=== PATIENT | male | born 1975 | race Caucasian/White ===

== ENCOUNTER 2021-12-08 14:44 | Inpatient (IN) | payer MEDICAID ==
[~2021-12-08] VITALS: Ht 195.6 cm; Wt 104.5 kg
[2021-12-08] MEDS ORDERED: normal saline 1000ML IV soln IV ONE (15:00)
[2021-12-08] MEDS ORDERED: piperacillin/tazo 3.375gm/50ml 50 ML IV ONE (15:00)
[2021-12-08] MEDS ORDERED: vancomycin/NS 1 GM ADD-VANTAGE 250 ML IV ONE (15:00)
[2021-12-08 15:32] LABS: BASOPHILS % (AUTO) 0.3 % (0-1); EOSINOPHILS # (AUTO) 0.2 X10'3 (0-0.9); HEMATOCRIT 40.3 % (42.0-52.0); HEMOGLOBIN 13.9 g/dl (14.0-17.9); LYMPHOCYTES # (AUTO) 1.5 X10'3 (1.1-4.8); LYMPHOCYTES % (AUTO) 9.4 % (21-51); MEAN CORPUSCULAR HEMOGLOBIN 30.7 PG (27.0-31.0); MEAN CORPUSCULAR HGB CONC 34.5 g/dL (33.0-36.5); MEAN PLATELET VOLUME 8.3 FL (7.4-10.4); MONOCYTES # (AUTO) 1.4 X10'3 (0-0.9); MONOCYTES % (AUTO) 8.5 % (2-12); NEUTROPHILS # (AUTO) 12.9 X10'3 (1.8-7.7); NEUTROPHILS % (AUTO) 80.8 % (42-75); PLATELET COUNT 290 X10'3 (140-440); RED BLOOD COUNT 4.53 X10'6 (4.70-6.10); RED CELL DISTRIBUTION WIDTH 13.1 % (11.5-14.5)
[2021-12-08 15:40] LABS: ALANINE AMINOTRANSFERASE 16 U/L (12-78); ALBUMIN 3.7 G/DL (3.4-5.0); ALBUMIN/GLOBULIN RATIO 0.8 (1.1-1.5); ALKALINE PHOSPHATASE 95 IU/L (46-116); ANION GAP 7 (8-16); ASPARTATE AMINO TRANSFERASE 19 U/L (10-37); BILIRUBIN,TOTAL 0.9 MG/DL (0.1-1.0); BLOOD UREA NITROGEN 13 MG/DL (7-18); BUN/CREATININE RATIO 14.3 (5.4-32.0); CHLORIDE 103 MMOL/L (99-107); CREATININE 0.91 MG/DL (0.60-1.10); GLUCOSE 99 MG/DL (70-104); MAGNESIUM 2.1 MG/DL (1.5-2.4); POTASSIUM 3.8 MMOL/L (3.5-5.1); SODIUM 138 MMOL/L (135-145); TOTAL CARBON DIOXIDE 28.4 MMOL/L (24-32); TOTAL PROTEIN 8.3 G/DL (6.4-8.2); eGFR 90 ML/MIN
[2021-12-08] MEDS ORDERED: magnesium Cl slow-release 64mg tablet PO PRN (16:55)
[2021-12-08] MEDS ORDERED: acetaminophen 325mg tablet PO PRN ×2 (16:55)
[2021-12-08] MEDS ORDERED: POTASSIUM BICARB 20meq eff tab 20 MEQ TABLET.EFF PO PRN ×2 (16:55)
[2021-12-08] MEDS ORDERED: HYDROcodone/acetaminophen 5mg/325mg tablet PO PRN (16:55)
[2021-12-08] MEDS ORDERED: normal saline 1000ml 1,000 ML IV SCH (16:55)
[2021-12-08] MEDS ORDERED: magnesium 2GM in 50ml NS 50 ML IV PRN (16:55)
[2021-12-08] MEDS ORDERED: ondansetron/PF 4mg/2ml inj IV PRN (16:55)
[2021-12-08] MEDS ORDERED: potassium CL 10mEq/100ml bag 100 ML IV PRN (16:55)
[2021-12-08] MEDS ORDERED: ondansetron 4mg rapidly disintigrating tab PO PRN (16:55)
[2021-12-08] MEDS ORDERED: magnesium 4gm in 100ml NS 100 ML IV PRN (16:55)
[2021-12-08] MEDS ORDERED: nicotine 14mg patch - 24hr TD ONE (17:25)
[2021-12-08] MEDS ORDERED: nicotine prolacrilex 4mg gum BC ONE (17:25)
[2021-12-08] MEDS ORDERED: NICOTINE POLACRILEX 2 MG LOZENGE BC ONE (17:45)
[2021-12-08] MEDS ORDERED: SULF1TAB49 PO (17:52)
[2021-12-08] MEDS ORDERED: AMOX-117 PO (17:52)
[2021-12-08] MEDS ORDERED: sulfamethoxazole/trimethoprim DS (800/160mg) tablet PO ONE (19:30)
[2021-12-08] MEDS ORDERED: amox tr/potassium clavulanate 875/125mg TAB PO ONE (19:30)
[2021-12-08 19:46] VITALS: BP 139/81
[2021-12-08] MEDS ORDERED: cefepime 1GM/NS ADD-VANTAGE 100 ML IV SCH (20:00)
[2021-12-08] MEDS ORDERED: K and/or MAG REPLACEMENT MC SCH (20:00)
[2021-12-08] MEDS ORDERED: docusate sod 100mg capsule PO SCH (20:00)
[2021-12-08] MEDS ORDERED: heparin, porcine 5000 units/ml vial SQ SCH (20:00)
[2021-12-08] MEDS ORDERED: temazepam 15mg capsule PO PRN (21:00)
[2021-12-09] MEDS ORDERED: vancomycin/NS 1 GM ADD-VANTAGE 250 ML IV SCH
[2021-12-09] MEDS ORDERED: VANCOMYCIN LEVEL IV ONE (15:30)
== END 2021-12-08 19:46 | disposition home or self-care (01) | DRG 383 ==
LOC: ER 14:45 → ED HOLD 16:57
PROVIDERS: ADMIT Internal Medicine; ATTEND Internal Medicine
DX: L03.116 Cellulitis of left lower limb (principal); F17.210 Nicotine dependence, cigarettes, uncomplicated; Z71.6 Tobacco abuse counseling
CPT/HCPCS: 36415; 71045; 80053; 83605; 83735; 84145; 85025; 87040; 93005; 96374; 96375; 99285; G0378; J2543; J3370; J7030

== ENCOUNTER 2022-04-10 22:48 | Emergency (ER) | payer MEDICAID ==
[~2022-04-10] VITALS: Ht 195.6 cm; Wt 104.5 kg
[2022-04-10] MEDS ORDERED: LIDOcaine 1% 30ml preserv. free vial IJ STA (23:30)
[2022-04-10] MEDS ORDERED: TETanus/Pertussis (Acell)/Diphther VAC/PF (Tdap-Adult) 0.5ml syringe IMVAC ONE (23:35)
[2022-04-10] MEDS ORDERED: ceFAZolin 1gm IM kit IM ONE (23:35)
[2022-04-11] MEDS ORDERED: CEPH-585 PO (01:24)
[2022-04-11] MEDS ORDERED: bacitracin 15gm ointment TP ONE (01:25)
[2022-04-11] MEDS ORDERED: MORP15TA PO (01:27)
[2022-04-11] MEDS ORDERED: morphine IR (immed. release) 30mg tablet PO PRN (01:55)
[2022-04-11] MEDS ORDERED: ibuprofen tablet 400 MG TABLET PO ONE (02:00)
[2022-04-11] MEDS ORDERED: acetaminophen 325mg tablet PO ONE ×2 (02:00)
[2022-04-11] MEDS ORDERED: IBUP-1984 PO (02:26)
--- NOTE | 2022-04-11 03:55 | NUR ---
Non-adherant dressing applied to right fingers, gauze and bulky dressing applied. Bacitracin ointment applied
[2022-04-11 05:09] VITALS: BP 138/72
== END 2022-04-11 02:10 | disposition home or self-care (01) ==
LOC: ER 22:49
DX: S61.212A Laceration without foreign body of right middle finger without damage to nail, initial encounter (principal); Z79.899 Other long term (current) drug therapy; X58.XXXA Exposure to other specified factors, initial encounter; Y92.89 Other specified places as the place of occurrence of the external cause; Y93.89 Activity, other specified; Y99.8 Other external cause status
CPT/HCPCS: 12001; 73130; 90471; 90715; 96372; 99284; J0690; J3490; A6258; A6449

== ENCOUNTER 2022-05-04 15:53 | Emergency (ER) | payer MEDICAID ==
[~2022-05-04] VITALS: Ht 195.6 cm; Wt 104.5 kg
[2022-05-04 16:21] VITALS: BP 151/99
[2022-05-04] MEDS ORDERED: proparacaine 0.5% ophthalmic drops 15ml EACHEYE ONE (19:30)
[2022-05-04] MEDS ORDERED: ciprofloxacin 0.3% 2.5ml ophthalmic solution EACHEYE ONE (20:00)
[2022-05-04] MEDS ORDERED: gentamicin 0.1% topical ointment 15gm TP STA (20:00)
[2022-05-04] MEDS ORDERED: ibuprofen 200mg tablet PO ONE (20:40)
== END 2022-05-04 21:29 | disposition home or self-care (01) ==
LOC: ER 15:54
DX: S05.01XA Injury of conjunctiva and corneal abrasion without foreign body, right eye, initial encounter (principal); H10.31 Unspecified acute conjunctivitis, right eye; H57.11 Ocular pain, right eye; F17.200 Nicotine dependence, unspecified, uncomplicated; X58.XXXA Exposure to other specified factors, initial encounter; Y93.89 Activity, other specified; Y92.89 Other specified places as the place of occurrence of the external cause; Y99.8 Other external cause status
CPT/HCPCS: 99284